=== PATIENT | female | born 1985 | race Caucasian/White ===

== ENCOUNTER 2016-12-04 17:34 | Inpatient (IN) | payer MEDICAID ==
[~2016-12-04] VITALS: Ht 162.6 cm; Wt 47.5 kg
[~2016-12-04 17:34] MED LIST: PREN1TAB49
[2016-12-04] MEDS ORDERED: ACETAMINOPHEN 325 MG TAB PO STA (19:28)
[2016-12-04] MEDS ORDERED: SOD CHLORIDE 0.9% 1,000 ML IV STA (19:28)
[2016-12-04 20:28] LABS: BASOPHILS % 0.1 % (0.0-2.0); EOSINOPHILS % 0.1 % (0.0-7.0); HEMATOCRIT 34.9 % (37.0-47.0); HEMOGLOBIN 11.9 g/dl (12.0-16.0); LYMPHOCYTES # 0.7 10^3/ul (0.8-2.9); LYMPHOCYTES % 8.1 % (15.0-51.0); MEAN CORPUSCULAR HEMOGLOBIN 31.1 pg (29.0-33.0); MEAN CORPUSCULAR HGB CONC 34.1 g/dl (32.0-37.0); MEAN CORPUSCULAR VOLUME 91.1 fl (82.0-101.0); MEAN PLATELET VOLUME 10.7 fl (7.4-10.4); MONOCYTE # 0.6 10^3/ul (0.3-0.9); NEUTROPHILS % 84.4 % (39.0-77.0); PLATELET COUNT 249 10^3/UL (140-415); RED BLOOD COUNT 3.83 10^6/ul (4.20-5.40); RED CELL DISTRIBUTION WIDTH 14.4 % (11.5-14.5); WHITE BLOOD COUNT 8.8 10^3/ul (4.8-10.8)
[2016-12-04 20:45] LABS: ADD UMIC YES; UR ASCORBIC ACID NEGATIVE (NEGATIVE); UR BACTERIA FEW /HPF (NONE SEEN); UR BILIRUBIN (Dip) NEGATIVE (NEGATIVE); UR BLOOD (Dip) 3+ mg/dL (NEGATIVE); UR CLARITY SLIGHTLY CLOUDY (CLEAR); UR COLOR AMBER (YELLOW); UR GLUCOSE (Dip) 1+ mg/dL (NEGATIVE); UR KETONES (Dip) 2+ mg/dL (NEGATIVE); UR LEUKOCYTE ESTERASE (Dip) 1+ Leu/ul (NEGATIVE); UR MUCUS MANY /HPF (NONE SEEN); UR NITRITE (Dip) NEGATIVE (NEGATIVE); UR RBC 40 /HPF (0-5); UR SPECIFIC GRAVITY (Dip) 1.029 (1.003-1.030); UR SQUAMOUS EPITHELIAL CELL FEW /HPF (FEW); UR TOTAL PROTEIN (Dip) 2+ mg/dl (NEGATIVE); UR UROBILINOGEN (Dip) 2+ mg/dL (NEGATIVE)
--- NOTE | 2016-12-04 21:40 | RADRPT ---
PROCEDURE: OB Ultrasound. CLINICAL INDICATION: Positive test. Abdominal and pelvic pain. TECHNIQUE: Ultrasound of the pelvis was performed with transabdominal and transvaginal sonography in the axial and sagittal planes. COMPARISON: No prior study is available for comparison. FINDINGS: There is no intrauterine gestational sac. The uterus is enlarged measuring 11.2 x 8.6 x 11.4 cm. Mu ltiple small cystic nodules are present throughout the endometrium measuring between 0.1 and 0.6 cm. A larger cystic mass is present centrally in the uterus measuring 5.5 x 3.5 cm. The ovaries are not visualized. There is no other pelvic mass or free fluid. IMPRESSION: 1. Enlarged uterus with multiple small cystic nodules throughout the endometrium is gestational tro phoblastic disease. 2. Ovaries not visualized. RPTAT: QQ .Aron Alvarez MD, MD Date Time Electronically viewed and signed by .Aron Alvarez MD, on 12/04/2016 21:40 .R/
[2016-12-05] VITALS (13 sets, daily range): BP systolic 104–119; BP diastolic 52–74; PULSE 76–109; RESP 15–23; TEMP 98.9; Ht 162.6 cm; Wt 47.5 kg
--- NOTE | 2016-12-05 00:21 | RADRPT ---
PROCEDURE: XR Chest. CLINICAL INDICATION: Vomiting. TECHNIQUE: AP view of the chest was obtained. COMPARISON: None available FINDINGS: The cardiomediastinal silhouette is within normal limits. The lungs are clear. No signs of pleural f luid or pneumothorax are seen. The osseous structures and soft tissues are unremarkable. IMPRESSION: 1. No evidence for active cardiopulmonary disease. RPTAT: HGAS .Dick Edmond MD, MD Date Time Electronically viewed and signed by .Dick Edmond MD, on 12/05/2016 00:21 .S/
--- NOTE | 2016-12-05 00:23 | ERA ---
ER Documentation Chief Complaint Date/Time DATE: 12/05/16 TIME: 00:18 Chief Complaint sent from for eval and R/O Molar HPI 31-year-old female patient with a past medical history of molar is a with previous history of 2 molar pregnancies presents to the ED complaining of a pinkish fluid leakage that occurred for a few days. States that she felt like she has a fever but denies taking an actual temperature. Reports that she has had a few episodes of vomiting. Denies any cough, rhinorrhea, chest pain, shortness of breath, abdominal pain, constipation. Patient states her last menses was on October 07, 2016. ROS All systems reviewed and are negative except as per history of present illness. Medications Home Meds Discontinued Reported Medications Vits W-Ca,Fe,Fa(<1MG) () 1 Tab Tablet 02/21/10 Allergies Allergies: Coded Allergies: No Known Allergies (Verified Allergy, Mild, 02/22/10) PMhx/Soc Medical and Surgical Hx: pt denies Medical Hx, pt denies Surgical Hx History of Surgery: No Anesthesia Reaction: No Hx Neurological Disorder: No Hx Respiratory Disorders: No Hx Cardiac Disorders: No Hx Psychiatric Problems: No Hx Miscellaneous Medical Probl: No Hx Alcohol Use: No Hx Substance Use: No Hx Tobacco Use: No Smoking Status: Never smoker Physical Exam Vitals Vital Signs Date Time Temp Pulse Resp B/P Pulse Ox O2 Delivery O2 Flow Rate FiO2 12/04/16 22:19 98.3 90 22 100 Room Air 12/04/16 17:37 100.3 116 20 106/77 94 Physical Exam Const: [id number]-[id number], well-nourished. In no acute distress. Head: Atraumatic, normocephalic Eyes: Normal Conjunctiva without injection. No purulent discharge. ENT: Normal external ear, nose. Moist oropharynx without tonsillar exudates. Non -erythematous pharynx. Uvula midline. No drooling. No trismus. Neck: No cervical midline tenderness. Full range of motion. No meningismus. No cervical lymphadenopathy. No JVD. Resp: Clear to auscultation bilaterally. No wheezing, rhonchi, rales, or crackles. No accessory muscle use. No retractions. Cardio: Regular rate and rhythm. No murmurs, rubs or gallops. Abd: Soft, nontender, non distended. Normal bowel sounds. No palpable masses. No rebound tenderness. No guarding. Negative McBurney's point. Negative psoas sign. Negative obturator sign. Skin: No petechiae or rashes Back: No midline tenderness. No CVA tenderness. Ext: No cyanosis, or edema. Neur: Awake and alert. Normal gait. Normal coordination. Psych: Normal Mood and Affect Results 24 hrs Laboratory Tests Test 12/04/16 20:05 White Blood Count 8.810^3/ul Red Blood Count 3.8310^6/ul Hemoglobin 11.9g/dl Hematocrit 34.9% Mean Corpuscular Volume 91.1fl Mean Corpuscular Hemoglobin 31.1pg Mean Corpuscular Hemoglobin Concent 34.1g/dl Red Cell Distribution Width 14.4% Platelet Count 69828^3/UL Mean Platelet Volume 10.7fl Neutrophils % 84.4% Lymphocytes % 8.1% Monocytes % 7.0% Eosinophils % 0.1% Basophils % 0.1% Nucleated Red Blood Cells % 0.0/100WBC Neutrophils # (Manual) 7.410^3/ul Lymphocytes # 0.710^3/ul Monocytes # 0.610^3/ul Eosinophils # 0.010^3/ul Basophils # 0.010^3/ul Nucleated Red Blood Cells # 0.010^3/ul Urine Color MARU Urine Clarity SLIGHTLY CLOUDY Urine pH 5.0 Urine Specific [place] 1.029 Urine Ketones 2+mg/dL Urine Nitrite NEGATIVEmg/dL Urine Bilirubin NEGATIVEmg/dL Urine Urobilinogen 2+mg/dL Urine Leukocyte Esterase 1+Gerber/ul Urine Microscopic RBC 40/HPF Urine Microscopic WBC 19/HPF Urine Squamous Epithelial Cells FEW/HPF Urine Bacteria FEW/HPF Urine Mucus MANY/HPF Urine Hemoglobin 3+mg/dL Urine Glucose 1+mg/dL Urine Total Protein 2+mg/dl Sodium Level 142mmol/L Potassium Level 4.1mmol/L Chloride Level 105mmol/L Carbon Dioxide Level 22mmol/L Anion Gap 19 Blood Urea Nitrogen 17mg/dl Creatinine 0.60mg/dl Glucose Level 80mg/dl Calcium Level 9.8mg/dl Total Bilirubin 0.2mg/dl Direct Bilirubin 0.00mg/dl Indirect Bilirubin 0.2mg/dl Aspartate Amino Transf (AST/SGOT) 28IU/L Alanine Aminotransferase (ALT/SGPT) 42IU/L Alkaline Phosphatase 66IU/L Total Protein 7.4g/dl Albumin 3.8g/dl Globulin 3.60g/dl Albumin/Globulin Ratio 1.05 Beta HCG, Quantitative 5493636.0mIU/ml Current Medications Medications (Trade) Dose Ordered Sig/Aleta Route PRN Reason Start Time Stop Time Status Last Admin Dose Admin Sodium Chloride (NS) 1,000 ml @ 1,000 mls/hr Q1H STAT IV 12/04/16 19:28 12/04/16 20:27 DC 12/04/16 20:11 Acetaminophen (Tylenol Tab) 650 mg ONCE STAT PO 12/04/16 19:28 12/04/16 19:31 DC 12/04/16 20:11 Procedures/MDM 31-year-old female patient who is a presents to the ED complaining of having a pinkish leakage that occurred for a few days. Patient has a fever of 100.3. Patient is tachycardic at 116. An ultrasound, beta-hCG, CBC, type and RH, UA was ordered to evaluate patient. CBC: No evidence of severe infection or anemia Urine: No elevation in nitrites, leukocyte esterase, hematuria. No evidence of UTI Rh: A+ No indication for Rhogam at this time. beta Hcg: Pending PROCEDURE: OB Ultrasound. CLINICAL INDICATION: Positive test. Abdominal and pelvic pain. TECHNIQUE: Ultrasound of the pelvis was performed with transabdominal and transvaginal sonography in the axial and sagittal planes. COMPARISON: No prior study is available for comparison. FINDINGS: There is no intrauterine gestational sac. The uterus is enlarged measuring 11.2 x 8.6 x 11.4 cm. Multiple small cystic nodules are present throughout the endometrium measuring between 0.1 and 0.6 cm. A larger cystic mass is present centrally in the uterus measuring 5.5 x 3.5 cm. The ovaries are not visualized. There is no other pelvic mass or free fluid. IMPRESSION: 1. Enlarged uterus with multiple small cystic nodules throughout the endometrium is gestational trophoblastic disease. 2. Ovaries not visualized. Patient's ultrasound is consistent with enlarged uterus with multiple small cystic nodules throughout the endometrium is a gestational trophoblastic disease. Patient likely has a molar . Patient was discussed with my supervising physician, Dr. Plaza who agreed to consult the laborist health information provider. Dr. Flores, patient's PUBLICITY PERSON was consulted and we all agreed that patient should be admitted at this time. Dr. Flores stated that patient will receive a D&C tomorrow morning. Patient is hemodynamically stable. Patient will now be under the care of Dr. Plaza for further care and treatment. Departure Diagnosis: Primary Impression: GTD (gestational trophoblastic disease) Condition: ROXANNE Rodriguez PA-C Dec 05, 2016 00:23
[2016-12-05 02:45] LABS: ALBUMIN 3.8 g/dl (3.3-4.9); ALBUMIN/GLOBULIN RATIO 1.05; BILIRUBIN,INDIRECT 0.2 mg/dl (0-1.1); BILIRUBIN,TOTAL 0.2 mg/dl (0.2-1.3); CALCIUM 9.8 mg/dl (8.4-10.2); CREATININE 0.6 mg/dl (0.44-1.00); POTASSIUM 4.1 mmol/L (3.5-5.1); TOTAL PROTEIN 7.4 g/dl (6.1-8.1)
[2016-12-05] MEDS ORDERED: METHYLERGONOVINE 0.2 MG INJ ONE (07:00)
[2016-12-05] MEDS: D5W-0.45 NACL + KCL 20 MEQ 1,000 ML IV SCH ×4 (09:00→21:55)
[2016-12-05] MEDS ORDERED: MIDAZOLAM 1 MG/ML 2 ML INJ ONE (14:50)
[2016-12-05] MEDS ORDERED: FENTAnyl 50 MCG/ML VIAL ONE (14:50)
[2016-12-05] MEDS ORDERED: PROPOFOL 20 ML ONE (14:50)
[2016-12-05] MEDS ORDERED: OXYTOCIN 10 UNIT INJ ONE (14:51)
[2016-12-05] MEDS ORDERED: METOCLOPRAMIDE 10 MG INJ ONE (14:51)
[2016-12-05] MEDS ORDERED: CEFAZOLIN 1 GM INJ ONE (15:11)
--- NOTE | 2016-12-05 15:23 | SIPON ---
Date/Time of Note Date/Time of Note DATE: 12/05/16 TIME: 15:21 Operative Report Preoperative Diagnosis Gestational Trophphoblastic Disease Postoperative Diagnosis Same Operation/Procedure Performed Dilation and Curettage Surgeon: DIANA ORTIZ MD Anesthesia Type: general Estimated Blood Loss: other (1100 ml) Transfusion Required: no Specimens Products of Conception Grafts/Implants: none Complications: no DIANA ORTIZ MD Dec 05, 2016 15:23
[2016-12-05] MEDS ORDERED: METOCLOPRAMIDE 10 MG INJ IV PRN (15:30)
[2016-12-05] MEDS ORDERED: DIPHENHYDRAMINE 50 MG INJ IV PRN (15:30)
[2016-12-05] MEDS ORDERED: ONDANSETRON 4 MG INJ IV PRN (15:30)
[2016-12-05] MEDS ORDERED: MEPERIDINE 25 MG INJ IV PRN (15:30)
[2016-12-05] MEDS ORDERED: HYDROmorphONE (0.2 MG/ML) 10ML SYG IV PRN ×3 (15:30)
--- NOTE | 2016-12-05 15:46 | PREOPHP ---
DATE OF ADMISSION: 12/05/2016 HISTORY OF PRESENT ILLNESS: A 31-year-old female, 3, para 0 with history of 2 prior molar pregnancies who presented to the emergency department with complaint of severe nausea and vomiting. PAST MEDICAL HISTORY: Unremarkable. PAST SURGICAL HISTORY: Two dilation and curettage. FAMILY HISTORY: Noncontributory. ALLERGIES: NO KNOWN ALLERGIES. PHYSICAL EXAMINATION: VITAL SIGNS: The patient is afebrile. Vital signs stable. HEAD, NECK, AND CHEST: Within normal limits. ABDOMEN: Soft, nontender, nondistended. GENITOURINARY: Uterus is enlarged. EXTREMITIES AND NEUROLOGIC: Exams within normal limits. WORKUP IN THE EMERGENCY DEPARTMENT: Included an obstetrical ultrasound, which revealed a molar . IMPRESSION: Gestational trophoblastic disease. PLAN: Dilation and suction curettage. The risks, benefits, and alternatives of procedure were explained to the patient. The patient stated she understood and gave informed consent for the procedure. Dictated By: Pavel Flores MD /jude/divine /Document#: [id number]
[2016-12-05 16:01] LABS: BASOPHILS % 0.2 % (0.0-2.0); EOSINOPHILS # 0.1 10^3/ul (0.0-0.5); HEMATOCRIT 28.1 % (37.0-47.0); HEMOGLOBIN 9.6 g/dl (12.0-16.0); MEAN CORPUSCULAR HEMOGLOBIN 31.6 pg (29.0-33.0); MEAN CORPUSCULAR HGB CONC 34.2 g/dl (32.0-37.0); MEAN CORPUSCULAR VOLUME 92.4 fl (82.0-101.0); MEAN PLATELET VOLUME 9.8 fl (7.4-10.4); MONOCYTE # 0.7 10^3/ul (0.3-0.9); MONOCYTES % 10.7 % (0.0-11.0); NEUTROPHILS % 71.8 % (39.0-77.0); PLATELET COUNT 201 10^3/UL (140-415); RED BLOOD COUNT 3.04 10^6/ul (4.20-5.40); RED CELL DISTRIBUTION WIDTH 14.1 % (11.5-14.5); WHITE BLOOD COUNT 6.2 10^3/ul (4.8-10.8)
--- NOTE | 2016-12-05 16:38 | OPR ---
DATE OF OPERATION: 12/05/2016 PREOPERATIVE DIAGNOSIS: Gestational trophoblastic disease. POSTOPERATIVE DIAGNOSIS: Gestational trophoblastic disease. OPERATION PERFORMED: Dilation and curettage. SURGEON: Dr. Pavel Flores. ANESTHESIA: General. ANESTHESIOLOGIST: Dr. Lancaster. OPERATIVE PROCEDURE: The patient was taken to the operating room, placed on the operating table in supine position. After adequate general anesthesia was given the patient was placed in dorsal lithotomy position. The area was prepared and draped in the usual sterile fashion. A weighted speculum was placed inside the vagina. A tenaculum was used to grasp the anterior lip of the cervix. Using cervical dilators, the cervical os was dilated and solution of oxytocin was started by the anesthesiologist. The cervix was dilated to size 9 and a size 9 cannula was placed inside the cervical canal and using suction machine production of conception were evacuated from the uterine cavity. Next, a sharp curette was used to perform sharp curettage. Intraoperative ultrasound was done and the ultrasound revealed no evidence of products of conception. At the end of the procedure all the instruments were removed and adequate hemostasis was assured. The patient tolerated the procedure well. The patient was awakened from anesthesia and transferred to recovery in stable condition. ESTIMATED BLOOD LOSS: 1100 cc. COUNTS: All counts were correct. Dictated By: Pavel Flores MD /jude/alejandra /Document#: [id number]
--- NOTE | 2016-12-05 16:39 | RADRPT ---
PROCEDURE: US OB. COMPARISON: Ultrasound dated 12/04/2016. FINDINGS: The images demonstrate operative hardware in the endometrial canal performing curettage. T he endometrial thickness is less pronounced when compared the prior with residual cystic change thro ughout the uterus. The last image demonstrates echogenic debris within the endometrial canal. IMPRESSION: RPTAT: HLBP .Dilan Glaser MD, Date Time Electronically viewed and signed by .Dilan Glaser MD, on 12/05/2016 16:39 .P/
[2016-12-06 02:52] VITALS: BP 103/57; RESP 18
[2016-12-06] MEDS: D5W-0.45 NACL + KCL 20 MEQ 1,000 ML IV SCH (06:26)
[2016-12-06 08:04] VITALS: BP 87/48; RESP 16
[2016-12-06 14:30] VITALS: BP 102/60; RESP 18
--- NOTE | 2016-12-06 16:05 | DS ---
Date/Time of Note Date/Time of Note DATE: 12/06/16 TIME: 16:01 Discharge Summary Admission/Discharge Info Admit Date/Time Dec 05, 2016 at 01:04 Discharge Date/Time 12/06/2016 Discharge Diagnosis Gestational Trophoblastic Disease Patient Condition: Stable Consults [facility] Procedures Dilation and Curettage Hx of Present Illness with 2 prior molar is admitted with GTD Hospital Course Patient underwent D&C. Post op course uneventful. Home Meds Discontinued Reported Medications Vits W-Ca,Fe,Fa(<1MG) () 1 Tab Tablet 02/21/10 Follow-up Plan on 12/11/[address] Ortiz [phone] Primary Care Provider Diana Ortiz MD Time spent on discharge: < 30 minutes DIANA ORTIZ MD Dec 06, 2016 16:05
== END 2016-12-06 18:00 | disposition home or self-care (01) | DRG 775 ==
LOC: FTE 17:34 → PP2 12-05 01:04
PROVIDERS: ADMIT Obstetrics & Gynecology; ATTEND Obstetrics & Gynecology
PROC: 10D07Z8 Extraction of Products of Conception, Other, Via Natural or Artificial Opening (ICD-10-PCS; principal; 2016-12-05 17:00)
DX: O01.0 Classical hydatidiform mole (principal)
CPT/HCPCS: 71010; 76801; 76817; 80053; 81001; 84702; 85025; 86850; 86900; 86901; 88305; J0690; J2210; J2250; J2405; J2590; J2765; J3010; J3480; J7030